=== PATIENT | male | born 1955 | race Caucasian/White ===

== ENCOUNTER 2017-12-07 08:21 | Emergency (ER) | payer BC ==
[2017-12-07 08:44] VITALS: BMI 33.3
[2017-12-07 08:54] VITALS: TEMP 98.5
[2017-12-07 09:50] LABS: URINE BILIRUBIN NEGATIVE (NEGATIVE); URINE BLOOD 3+ (NEGATIVE); URINE CLARITY Hazy (Clear); URINE COLOR Red (YELLOW); URINE GLUCOSE (UA) NORMAL (Normal); URINE LEUKOCYTE ESTERASE 1+ Leu/uL (Negative); URINE PROTEIN 2+ mg/dL (NEGATIVE); URINE UROBILINOGEN NORMAL mg/dL (0.2-1.0); WBC CLUMPS MANY /hpf
--- NOTE | 2017-12-07 10:08 | C.PDOC ---
History Of Present Illness Patient with PMHx of HTN and High cholesterol presents to ED with c/o sudden onset hematuria and dysuria since last night. Patient denies nausea, vomiting, abdominal pain, back pain or any other complaints at this time. Time Seen by Provider: 12/07/17 09:00 Chief Complaint (Nursing): Male Genitourinary History Per: Patient History/Exam Limitations: no limitations Onset/Duration Of Symptoms: Days Current Symptoms Are (Timing): Still Present Past Medical History Reviewed: Historical Data, Nursing Documentation, Vital Signs Vital Signs: Last Vital Signs Temp 98.5 F 12/07/17 08:46 Pulse 98 H 12/07/17 08:46 Resp 20 12/07/17 08:46 BP 175/96 H 12/07/17 08:46 Pulse Ox 96 12/07/17 10:17 - Medical History PMH: Depression, HTN, Hypercholesterolemia Surgical History: No Surg Hx - [facility] Procedures DILATION OF 1 COR ART WITH DRUG-ELUT INTRALUM, PERC APPROACH (01/18/16) FLUOROSCOPY OF LEFT HEART USING LOW OSMOLAR CONTRAST (01/18/16) FLUOROSCOPY OF MULT COR ART USING L OSM CONTRAST (01/18/16) MEASURE OF CARDIAC SAMPL & PRESSURE, L HEART, PERC APPROACH (01/18/16) Family History: States: No Known Family Hx - Social History Hx Alcohol Use: No Hx Substance Use: No - Immunization History Hx Tetanus Toxoid Vaccination: No Hx Influenza Vaccination: No Hx Pneumococcal Vaccination: No Review Of Systems Except As Marked, All Systems Reviewed And Found Negative. Genitourinary: Positive for: Dysuria, Hematuria Physical Exam - Physical Exam Appears: Non-toxic, No Acute Distress Skin: Warm, Dry, No Rash Head: Atraumatic, Normacephalic Oral Mucosa: Moist Neck: Normal ROM, Supple Cardiovascular: Rhythm Regular Respiratory: Normal Breath Sounds, No Rales, No Rhonchi, No Wheezing Gastrointestinal/Abdominal: Soft, No Tenderness, No Guarding, No Rebound Back: No CVA Tenderness, No Vertebral Tenderness Male Genital: No Testicular Tenderness, No Circumcised, Other (descended testes) Extremity: No Tenderness, Capillary Refill (<2 seconds) Neurological/Psych: Oriented x3, Normal Speech, Normal Cognition ED Course And Treatment O2 Sat by Pulse Oximetry: 96 (RA) Pulse Ox Interpretation: Normal Medical Decision Making Medical Decision Making: Assessment: Dysuria and Hematuria Disposition Counseled Patient/Family Regarding: Studies Performed, Diagnosis, Need For Followup, Rx Given - Disposition Referrals: Misha Valentine Jr., MD [Staff Provider] - Disposition: HOME/ ROUTINE Disposition Time: 11:30 Condition: STABLE Additional Instructions: follow up with urology in 2 days call to make an appointment take medications as prescribed return to hospital if symptoms worsens or progress Prescriptions: Ciprofloxacin [Cipro] 500 mg PO BID #20 tab Ciprofloxacin HCl [Cipro] 500 mg PO BID #20 tab Phenazopyridine HCl [Pyridium] 200 mg PO TID PRN #6 tablet PRN Reason: Pain, Moderate (4-7) traMADol [Ultram] 50 mg PO TID PRN #12 tab PRN Reason: Pain, Moderate (4-7) Instructions: Urinary Tract Infection, Adult (DC) Forms: Gen Discharge Inst Irish, [employer] (Irish) Print Language: [place] - Clinical Impression Clinical Impression: UTI (urinary tract infection) - Scribe Statement The provider has reviewed the documentation as recorded by the Macrina Kirkland All medical record entries made by the Macrina were at my direction and personally dictated by me. I have reviewed the chart and agree that the record accurately reflects my personal performance of the history, physical exam, medical decision making, and the department course for this patient. I have also personally directed, reviewed, and agree with the discharge instructions and disposition.
[2017-12-07 11:55] VITALS: PULSE 107; RESP 18; O2SAT 98
[2017-12-07 11:57] VITALS: BP 172/98
== END 2017-12-07 11:57 | disposition home or self-care (01) ==
LOC: C.ER 08:21
DX: N39.0 Urinary tract infection, site not specified (principal); I10 Essential (primary) hypertension; E78.00 Pure hypercholesterolemia, unspecified

== ENCOUNTER 2018-08-07 08:26 | Outpatient (CLI) | payer BC, MEDICARE | END 2018-08-07 08:27 | disposition home or self-care (01) | LOC: C.CARD 08:26 | DX: R07.89 Other chest pain (principal); E78.5 Hyperlipidemia, unspecified; I10 Essential (primary) hypertension; I49.1 Atrial premature depolarization ==